=== PATIENT | female | born 1930 | race Caucasian/White ===

== ENCOUNTER 2020-03-21 18:52 | Emergency (ER) | payer MEDICARE, OTHER ==
[~2020-03-21] VITALS: Ht 165.1 cm; Wt 67.0 kg
--- NOTE | 2020-03-21 18:59 | ED Neurological Problem ---
General Stated Complaint: SYNCOPAL EPISODE Source: patient, EMS History of Present Illness Date Seen by Provider: Mar 21, 2020 Time Seen by Provider: 18:59 Initial Comments 89-year-old female brought in following a syncope event. Patient was at a [facility] [employer] when she had what was described by EMS as a five-minute syncope event per family. EMS reports when they arrived she was alert orientated in her baseline. Patient is covered in vomit but does not remember vomiting. She does have a history of dementia. At this time she reports she feels fine. There is no reports of any complaints of chest pain, shortness of breath, fever chills or other systemic complaints prior to the syncope event. Allergies and Home Medications Allergies Coded Allergies: No Known Drug Allergies (Unverified , 03/21/20) Patient Home Medication List Home Medication List Reviewed: Yes Review of Systems Review of Systems Constitutional: No chills, No fever, No weakness Eyes: No Symptoms Reported Ears, Nose, Mouth, Throat: no symptoms reported Respiratory: no symptoms reported Cardiovascular: no symptoms reported Gastrointestinal: No abdominal pain, No nausea; vomiting Genitourinary: no symptoms reported Musculoskeletal: no symptoms reported Skin: no symptoms reported Psychiatric/Neurological: See HPI Endocrine: No Symptoms Reported Past [id number] Hx Past Med/Social Hx: Reviewed Nursing Past Med/Soc Hx Physical Exam Vital Signs Vital Signs - First Documented 03/21/20 19:02 Temp 35.9 Pulse 102 Resp 20 B/P (MAP) 113/51 (71) Pulse Ox 95 O2 Delivery Room Air Capillary Refill : Height, Weight, BMI Height: '" Weight: lbs. oz. 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, no motor/sensory deficits, alert, normal mood/affect Crainal Nerves: normal speech, PERRL Motor/Sensory: no motor deficit, no sensory deficit; No weak motor strength RUE, No weak motor strength LUE, No weak motor strength RLE, No weak motor strength LLE Skin: normal color, warm/dry Progress/Results/Core Measures Results/Orders Lab Results Laboratory Tests Test 03/21/20 19:00 Range/Units White Blood Count 7.5 4.3-11.0 10^3/uL Red Blood Count 4.06 L 4.35-5.85 10^6/uL Hemoglobin 12.3 11.5-16.0 G/DL Hematocrit 38 35-52 % Mean Corpuscular Volume 93 80-99 FL Mean Corpuscular Hemoglobin 30 25-34 PG Mean Corpuscular Hemoglobin Concent 33 32-36 G/DL Red Cell Distribution Width 13.7 10.0-14.5 % Platelet Count 323 130-400 10^3/uL Mean Platelet Volume 9.6 7.4-10.4 FL Immature Granulocyte % (Auto) 0.3 Neutrophils (%) (Auto) 58 42-75 % Lymphocytes (%) (Auto) 32 12-44 % Monocytes (%) (Auto) 0 0-12 % Eosinophils (%) (Auto) 2 0-10 % Basophils (%) (Auto) 1 0-10 % Neutrophils # (Auto) 4.4 1.8-7.8 X 10^3 Lymphocytes # (Auto) 2.4 1.0-4.0 X 10^3 Monocytes # (Auto) 0.6 0.0-1.0 X 10^3 Eosinophils # (Auto) 0.1 0.0-0.3 10^3/uL Basophils # (Auto) 0.1 0.0-0.1 10^3/uL Immature Granulocyte # (Auto) 0.0 0.0-0.1 Percent Immature Platelet Fraction 1.7 0.0-7.6 Sodium Level 143 135-145 MMOL/L Potassium Level 3.6 3.6-5.0 MMOL/L Chloride Level 106 98-107 MMOL/L Carbon Dioxide Level 20 L 21-32 MMOL/L Anion Gap 17 H 5-14 MMOL/L Blood Urea Nitrogen 13 7-18 MG/DL Creatinine 1.79 H 0.60-1.30 MG/DL Estimat Glomerular Filtration Rate 27 BUN/Creatinine Ratio 7 Glucose Level 131 H 70-105 MG/DL Calcium Level 9.8 8.5-10.1 MG/DL Corrected Calcium 9.6 8.5-10.1 MG/DL Magnesium Level 2.2 1.6-2.4 MG/DL Total Bilirubin < 0.2 0.1-1.0 MG/DL Aspartate Amino Transf (AST/SGOT) 21 5-34 U/L Alanine Aminotransferase (ALT/SGPT) 12 0-55 U/L Alkaline Phosphatase 73 40-136 U/L Troponin I < 0.30 <0.30 NG/ML Total Protein 7.4 6.4-8.2 GM/DL Albumin 4.2 3.2-4.5 GM/DL Serum Alcohol 132 H <10 MG/DL My Orders Orders - ISIDRA ASHER DO Ct Head Wo-R/O Stroke (03/21/20 18:59) Alcohol (03/21/20 18:59) Cbc With Automated Diff (03/21/20 18:59) Comprehensive Metabolic Panel (03/21/20 18:59) Magnesium (03/21/20 18:59) Ua Culture If Indicated (03/21/20 18:59) Troponin I Fs (03/21/20 18:59) Ekg Tracing (03/21/20 18:59) Monitor-Rhythm Ecg Trace Only (03/21/20 18:59) Orthostatic Vital Signs (Adult (03/21/20 18:59) Vital Signs/I&O 03/21/20 03/21/20 19:02 19:18 Temp 35.9 Pulse 102 93 99 102 Resp 20 B/P (MAP) 113/51 (71) 104/46 (65) 110/55 (73) 114/54 (74) Pulse Ox 95 O2 Delivery Room Air Progress Progress Note : Time: 19:58 Progress Note Patient with no acute findings on exam. Patient does have a blood alcohol level of 132 that is likely the etiology of her syncope and vomiting. Patient stable only discharged home with family Initial ECG Impression Date: Mar 21, 2020 Initial ECG Impression Time: 19:05 Initial ECG Rate: 98 Initial ECG Rhythm: Normal Sinus Initial ECG Intervals: Normal Initial ECG Impression: Normal Comment normal ekg Diagnostic Imaging Diagonstic Imaging: CT Plain Films/CT/US/NM/MRI: head Comments [facility] [place] [place] NAME: ERICK ANN Fabrizio [facility] REC#: [id number] PT STATUS: REG ER : [id number] PHYSICIAN: ISIDRA ASHER DO ADMIT DATE: 03/21/20/ER FS Draft Date of Exam:03/21/20 CT HEAD WO-R/O STROKE PROCEDURE: CT head w/o, r/o stroke. TECHNIQUE: Multiple contiguous axial images were obtained through the brain without the use of intravenous contrast. Auto Exposure Controls were utilized during the CT exam to meet ALARA standards for radiation dose reduction. DATE: March 21, 2020. COMPARISON: None. INDICATION: 89-year-old female, syncope. FINDINGS: There is a polypoid lesion in the right sphenoid sinus likely relating to a mucous retention cyst. The ventricles and cerebral spinal fluid spaces are of normal size and configuration for the patient's age. There is no mass effect or midline shift. There is no acute intracranial hemorrhage. There is no abnormal extra-axial fluid collection. IMPRESSION: No identified acute intracranial abnormality. Reviewed: Reviewed by Me, Reviewed/Discussed Departure Impression Primary Impression: Acute alcoholic intoxication Qualified Codes: F10.920 - Alcohol use, unspecified with intoxication, uncomplicated Additional Impression: Syncope Qualified Codes: R55 - Syncope and collapse Disposition: 01 HOME, SELF-CARE Condition: Stable Departure-Patient Inst. Patient Instructions: Syncope (Fainting) Add. Discharge Instructions: Follow-up with your primary care provider as needed ISIDRA ASHER DO Mar 21, 2020 18:59
[2020-03-21 19:12] LABS: BASOPHILS % (AUTO) 1 % (0-10); EOSINOPHILS % (AUTO) 2 % (0-10); HEMATOCRIT 38 % (35-52); HEMOGLOBIN 12.3 G/DL (11.5-16.0); LYMPHOCYTES # (AUTO) 2.4 X 10^3 (1.0-4.0); LYMPHOCYTES % (AUTO) 32 % (12-44); MEAN CORPUSCULAR HEMOGLOBIN 30 PG (25-34); MEAN CORPUSCULAR HGB CONC 33 G/DL (32-36); MEAN CORPUSCULAR VOLUME 93 FL (80-99); MEAN PLATELET VOLUME 9.6 FL (7.4-10.4); MONOCYTES % (AUTO) 0 % (0-12); NEUTROPHILS # (AUTO) 4.4 X 10^3 (1.8-7.8); NEUTROPHILS % (AUTO) 58 % (42-75); PLATELET COUNT 323 10^3/uL (130-400); WHITE BLOOD COUNT 7.5 10^3/uL (4.3-11.0)
[2020-03-21 19:13] LABS: BASOPHILS # (AUTO) 0.1 10^3/uL (0.0-0.1); EOSINOPHILS # (AUTO) 0.1 10^3/uL (0.0-0.3); MONOCYTES # (AUTO) 0.6 X 10^3 (0.0-1.0)
[2020-03-21 19:18] VITALS: BP_SYST 104; BP_SYST 110; BP_SYST 114; BP_DIAS 46; BP_DIAS 54; BP_DIAS 55
[2020-03-21 19:31] LABS: BUN/CREATININE RATIO 7; CALCIUM 9.8 MG/DL (8.5-10.1); CARBON DIOXIDE 20 MMOL/L (21-32); CHLORIDE 106 MMOL/L (98-107); CREATININE SERUM 1.79 MG/DL (0.60-1.30); GFR ESTIMATED 27; GLUCOSE 131 MG/DL (70-105); POTASSIUM 3.6 MMOL/L (3.6-5.0); SODIUM 143 MMOL/L (135-145)
[2020-03-21 19:32] LABS: ALANINE AMINOTRANSFERASE 12 U/L (0-55); ALBUMIN 4.2 GM/DL (3.2-4.5); ALKALINE PHOSPHATASE 73 U/L (40-136); BILIRUBIN,TOTAL < 0.2 MG/DL (0.1-1.0); TOTAL PROTEIN 7.4 GM/DL (6.4-8.2)
[2020-03-21 19:41] LABS: MAGNESIUM 2.2 MG/DL (1.6-2.4)
--- NOTE | 2020-03-21 19:53 | Diagnostic Imaging Report ---
PROCEDURE: CT head w/o, r/o stroke. TECHNIQUE: Multiple contiguous axial images were obtained through the brain without the use of intravenous contrast. Auto Exposure Controls were utilized during the CT exam to meet ALARA standards for radiation dose reduction. DATE: March 21, 2020. COMPARISON: None. INDICATION: 89-year-old female, syncope. FINDINGS: There is a polypoid lesion in the right sphenoid sinus likely relating to a mucous retention cyst. The ventricles and cerebral spinal fluid spaces are of normal size and configuration for the patient's age. There is no mass effect or midline shift. There is no acute intracranial hemorrhage. There is no abnormal extra-axial fluid collection. IMPRESSION: No identified acute intracranial abnormality. Dictated by: Dictated on workstation # [id number]
[2020-03-21 20:11] VITALS: BP 96/52
== END 2020-03-21 20:10 | disposition home or self-care (01) ==
LOC: EDUNIT# 18:52 → ER FS 18:54
DX: F10.129 Alcohol abuse with intoxication, unspecified (principal); R55 Syncope and collapse
CPT/HCPCS: 36415; 70450; 80053; 83735; 84484; 85025; G0480; 80320

== ENCOUNTER → 2020-07-31 | Outpatient (CLI) | payer MEDICARE, OTHER ==
--- NOTE | 2020-07-31 13:38 | Diagnostic Imaging Report ---
HISTORY: Bone cyst in the third knuckle of the right hand. COMPARISON: None TECHNIQUE: Three views of the right hand. FINDINGS: There is diffuse osteopenia. There are degenerative changes scattered throughout the right hand with joint space loss present, most notable at the third and fifth DIP joints, and the first carpometacarpal joint. There is also subchondral sclerosis and marginal osteophytes at the third metacarpophalangeal joint without erosion seen. There is chondrocalcinosis. There is focal soft tissue swelling dorsal to the third metacarpal head. IMPRESSION: 1. Scattered degenerative changes in the right hand. 2. Focal soft tissue swelling dorsal to the third metacarpal head, with degenerative change of the underlying joint. Dictated by: Dictated on workstation # [id number]
== END ==
LOC: RAD FS 12:31
PROVIDERS: ATTEND Nurse Practitioner Family
DX: M85.649 Other cyst of bone, unspecified hand (principal); M19.041 Primary osteoarthritis, right hand
CPT/HCPCS: 73130